=== PATIENT | female | born 1990 ===

== ENCOUNTER 2024-11-08 15:29 | Outpatient (CLI) | payer OTHER, SELFPAY | END 2024-11-08 15:30 | disposition home or self-care (01) | PROVIDERS: Visit Provider Emergency Medicine | DX: R53.83 Other fatigue (principal); Z13.228 Encounter for screening for other metabolic disorders; Z13.29 Encounter for screening for other suspected endocrine disorder | CPT/HCPCS: 80048; 84443 ==